=== PATIENT | male | born 1990 | race Caucasian/White ===

== ENCOUNTER 2017-05-28 15:41 | Emergency (ER) | payer BC, OTHER ==
[2017-05-28] MEDS ORDERED: Fluorescein Opthalmic Strip ONE (15:48)
[2017-05-28] MEDS ORDERED: Proparacaine 0.5% Opth 15 ML BOT ONE (15:49)
== END 2017-05-28 16:37 | disposition home or self-care (01) ==
LOC: ERS 15:41
DX: H10.213 Acute toxic conjunctivitis, bilateral (principal); F41.9 Anxiety disorder, unspecified; Z87.891 Personal history of nicotine dependence
CPT/HCPCS: 99406